=== PATIENT | female | born 2000 | race Native Hawaiian/Other Pacific Islander ===

== ENCOUNTER 2022-08-17 15:37 | Outpatient (CLI) | payer BC, OTHER ==
[2022-08-17 15:48] LABS: PLATELET COUNT 341 K/uL (152-353)
== END 2022-08-17 19:27 | disposition home or self-care (01) ==
LOC: LABW 15:37
PROVIDERS: ATTEND Nurse Practitioner Family
DX: D72.828 Other elevated white blood cell count (principal)
CPT/HCPCS: 36415; 85027